=== PATIENT | male | born 1960 | race Two or more races ===

== ENCOUNTER 2018-02-01 10:34 | Inpatient (IN) | payer SELFPAY ==
[~2018-02-01] VITALS: Ht 167.6 cm; Wt 72.6 kg
[2018-02-01] VITALS (8 sets, daily range): BP systolic 40–98; BP diastolic 24–53
--- NOTE | 2018-02-01 10:44 | Emergency Room Report ---
History of Present Illness General Chief Complaint: Altered Level of Consciousness Source: Patient, EMS Present Illness HPI 57-year-old male brought in by EMS for altered level of consciousness found in the street. Apparently blood sugar was 151 prior to arrival in the check, and vital signs were normal, patient was somnolent, but opened eyes and made an comfortable sounds to tactile stimulus. There are no signs of trauma seen, and patient is unable to give any history. Does have eyes open and withdraws appropriately from pain. Allergies: Coded Allergies: No Known Allergies (Unverified , 02/01/18) Patient History Limited by: medical condition Past Medical History: see triage record, unable to obtain Reviewed Nursing Documentation: PMH: Agreed; PSxH: Agreed Nursing Documentation-PMH Past Medical History: No Stated History Review of Systems All Other Systems: limited Physical Exam Vital Signs Date Time Temp Pulse Resp B/P (MAP) Pulse Ox O2 Delivery O2 Flow Rate FiO2 02/01/18 10:14 75 18 126/61 98 Room Air Sp02 EP Interpretation: reviewed, abnormal General Appearance: alert - drowsy, severe distress Head: normocephalic Eyes: bilateral eye normal inspection, bilateral eye PERRL, bilateral eye EOMI , bilateral eye Scleral Injection ENT: normal ENT inspection, dry mucus membranes Neck: normal inspection, full range of motion, supple, no bony tend, supple/ symm/no masses Respiratory: chest non-tender, lungs clear, chest symmetrical, palpation of chest normal Cardiovascular #1: normal peripheral pulses, regular rate, rhythm, edema - 2+ B /L LE edema Cardiovascular #2: 2+ carotid (R), 2+ carotid (L); 1+ radial (R), 1+ radial (L) ; 2+ femoral (R), 2+ femoral (L) Gastrointestinal: normal inspection, non tender, soft, no mass, no guarding, no rebound Rectal: deferred Genitourinary: normal inspection, no CVA tenderness Musculoskeletal: back normal, gait/station normal, normal range of motion, non- tender, no calf tenderness Neurologic: responsive - to painful stimulus with groans and withdraws extremities appropriately, sensory intact Psychiatric: other - unable to assess Skin: normal color, no rash, normal turgor, pallor Lymphatic: no adenopathy Other Organ Systems cold Procedures Critical Care Time Critical Care Time 50 minutes of critical care time due to patient's severe morbidity and mortality risk given cold temperature, unable to obtain rectal temperature due to patient's hypothermia, unable to obtain much history as well to his change in mental status, this critical care time was exclusive of all procedures. Central Line Central Line : Consent: Emergent Central Line Lumen: triple Maximal Sterile Barrier Tech: yes cap, yes mask, yes sterile gown, yes sterile gloves, yes large sterile sheet, yes hand hygiene, yes chlorhexidine prep Central Line Postion: femoral (R) Anesthesia: other - none Complications: none Central Line Post Position: sutured, good blood return Attempts: One Patient Tolerated: Well Complications: None CPR/Code Blue CPR/Code Blue Narrative see code sheet Intubation Intubation : Consent: Emergent Time of Intubation: 11:59 Tube Size (cm): 7.0 Medications: Succinylcholine Breath Sounds after Intubation: equal Intubation Complications: no complications Post Intubation Xray: Yes Progress/Xray Impression: ett above glen Attempts: Other - 2, difficult tube delivery with 7.5 ett, so 7.0 used with BVM in between attempts, glidescope used Patient Tolerated: Well Complications: None Medical Decision Making Diagnostic Impression: Primary Impression: Accidental hypothermia ER Course Patient found to be very hypothermic, temperature unable to assess, EKG with Villa waves, patient hypotensive, had 2 large-bore IVs placed, 1L NSS infusing , then 2 more L warmed NSS coming from OR to infuse upon arrival, warm blankets as well as mechanical body warmer placed, defibrillation pads made ready, instructions to avoid over jostling the patient, patient will need ICU admission. Staff instructed to avoid chest compressions if organized rhythm seen on monitor and to keep US machine and doppler at bedside for pulse assessments since decreased palpability of pulse is expected during hypothermia treatment, and of course to inform me if this possibly occurs so I can direct CPR if necessary. Patient did eventually code, went into asystole, needed CPR, had ROSC with epi, bicarb, and chest compression, was intubated, had a central line placed, put on pressors and iv abx, bicarb drip. Patient admitted to ICU to Dr. Pollock. Lab Results Impression abg with metabolic acidosis and incomplete respiratory compensation EKG Diagnostic Results EKG Time: 10:38 EP Interpretation: villa waves in inferolateral leads Rate: other - junctional escape ST Segments: no acute changes - +st elevations inferolaterally 2/2 villa waves Rhythm Strip Diag. Results Rhythm Strip Time: 10:43 EP Interpretation: yes Rate: 60 Rhythm: other - junctional escape rhythm Chest X-Ray Diagnostic Results Chest X-Ray Diagnostic Results : Chest X-Ray Ordered: Yes # of Views/Limited/Complete: 1 View Indication: Shortness of Breath EP Interpretation: Yes Interpretation: no effusion, no pneumothorax, other - +pulm vasc congestion Impression: Other Electronically Signed by: pulm vasc congestion, ETT in place Last Vital Signs Date Time Temp Pulse Resp B/P (MAP) Pulse Ox O2 Delivery O2 Flow Rate FiO2 02/01/18 10:14 75 18 126/61 98 Room Air Disposition: ADMITTED INPATIENT Condition: Critical JONATAN ZALDIVAR M.D Feb 01, 2018 10:44
[2018-02-01 11:22] LABS: HEMOGLOBIN 9.3 G/DL (14.2-18.0); MEAN CORPUSCULAR VOLUME 99 FL (80-99); PLATELET COUNT 31 K/UL (150-450); RED BLOOD COUNT 3.14 M/UL (4.70-6.10); RED CELL DISTRIBUTION WIDTH 21.1 % (11.6-14.8); WHITE BLOOD COUNT 4.2 K/UL (4.8-10.8)
[2018-02-01 11:28] LABS: ANION GAP 23 mmol/L (5-15); BLOOD UREA NITROGEN 15 mg/dL (7-18); CALCIUM 8.5 MG/DL (8.5-10.1); CARBON DIOXIDE 11 MMOL/L (21-32); CHLORIDE 99 MMOL/L (98-107); CREATININE 1.7 MG/DL (0.55-1.30); POTASSIUM 3.7 MMOL/L (3.5-5.1); SODIUM 133 MMOL/L (136-145)
[2018-02-01 11:32] LABS: ALANINE AMINOTRANSFERASE 108 U/L (12-78); ALBUMIN 2.3 G/DL (3.4-5.0); ALKALINE PHOSPHATASE 270 U/L (46-116); ASPARTATE AMINO TRANSFERASE 585 U/L (15-37); BILIRUBIN,DIRECT 2.4 MG/DL (0.0-0.3); BILIRUBIN,TOTAL 3.5 MG/DL (0.2-1.0)
--- NOTE | 2018-02-01 11:41 | Diagnostic Imaging Report ---
Indications: Altered level of consciousness Technique: Spiral acquisitions obtained through the brain. Angled axial and coronal 5 x 5 mm slices were reconstructed. Total dose length product 1446.46 mGycm. CTDI vol(s) 70.38 mGy. Dose reduction achieved using automated exposure control Comparison: None. Findings: There is image degradation due to motion artifact. There is a small subcutaneous scalp lesion in the high left parietal region. No acute intracranial hemorrhage nor edema. No mass effect nor midline shift. There is prominence to the ventricles and extra axial CSF spaces. There is minimal periventricular deep white matter low-attenuation, consistent with chronic ischemic change. The calvarium is intact. There is minimal ethmoid sinus disease. The mastoids are grossly clear Impression: Limited exam due to motion artifact Chronic and age-related changes, as described Negative for acute intracranial bleed or mass effect Incidental finding small subcutaneous scalp lesion in the high left parietal region, likely a process such as a subcutaneous cyst. Correlate with clinical findings The CT scanner at [facility] is accredited by the [employer] and the scans are performed using protocols designed to limit radiation exposure to as low as reasonably achievable to attain images of sufficient resolution adequate for diagnostic evaluation.
[2018-02-01] MEDS ORDERED: Piperacillin/Tazobactam 3.375 GM in NS 110 ML IVPB ONE (11:45)
--- NOTE | 2018-02-01 12:14 | Diagnostic Imaging Report ---
Indication: Shortness of breath Technique: One view of the chest Comparison: none Findings: External defibrillator paddles overlie the heart. Lungs and pleural spaces are clear. The heart size is normal Impression: No acute process
[2018-02-01] MEDS ORDERED: DOPamine 400mg/250ml 250 ML IV SCH ×3 (12:45→16:00)
[2018-02-01] MEDS ORDERED: SODIUM BICARBONATE IV ONE (13:00)
[2018-02-01] MEDS ORDERED: D5W IV ONE (13:00)
[2018-02-01 14:53] LABS: HEMOGLOBIN 7.4 G/DL (14.2-18.0); MEAN CORPUSCULAR VOLUME 99 FL (80-99); PLATELET COUNT 20 K/UL (150-450); RED BLOOD COUNT 2.43 M/UL (4.70-6.10); RED CELL DISTRIBUTION WIDTH 21.2 % (11.6-14.8); WHITE BLOOD COUNT 4.2 K/UL (4.8-10.8)
[2018-02-01 15:16] LABS: ANION GAP 21 mmol/L (5-15); BLOOD UREA NITROGEN 14 mg/dL (7-18); CARBON DIOXIDE 16 MMOL/L (21-32); CHLORIDE 104 MMOL/L (98-107); CREATININE 1.6 MG/DL (0.55-1.30); POTASSIUM 3.7 MMOL/L (3.5-5.1); SODIUM 140 MMOL/L (136-145)
--- NOTE | 2018-02-01 15:21 | GI Initial Consult Note ---
History of Present Illness General Date patient seen: Feb 01, 2018 Time patient seen: 15:10 Reason for Hospitalization: Altered Level of Consciousness Referring physician: MARTINA SYKES Reason for Consultation: GI BLEED Present Illness HPI 57-year-old male brought in by EMS for altered level of consciousness found in the street. Apparently blood sugar was 151 prior to arrival in the check, and vital signs were normal, patient was somnolent, but opened eyes and made an comfortable sounds to tactile stimulus. There are no signs of trauma seen, and patient is unable to give any history. Does have eyes open and withdraws appropriately from pain. GI consulted for GI bleed. ROS limited, AMS lethargic unable to provide any history. All history has been obtained from the EMR. Pt seen in ICU, mild distress, NGT present, noted with active UGIB. Labs reviewed; the patient presents with critical serum alcohol levels, pancytopenia, elevated LFTs, elevated lipase levels, elevated lactic acid levels. Unknown history of endoscopy/colonoscopy. Med list reviewed/reconciled: Yes Allergies: Coded Allergies: No Known Allergies (Unverified , 02/01/18) Patient History Limited by: medical condition History Provided By: Medical Record PMH Narrative Limited by: medical condition Past Medical History: see triage record, unable to obtain Reviewed Nursing Documentation: PMH: Agreed; PSxH: Agreed Nursing Documentation-PMH Past Medical History: No Stated History Social History: Reports: alcohol use - ETOH abuse Review of Systems All Other Systems: limited Physical Exam Vital Signs Date Time Temp Pulse Resp B/P (MAP) Pulse Ox O2 Delivery O2 Flow Rate FiO2 02/01/18 10:14 75 18 126/61 98 Room Air 02/01/18 11:16 80.0 3.0 02/01/18 12:15 100 Sp02 EP Interpretation: reviewed Labs Laboratory Tests Test 02/01/18 10:34 02/01/18 10:35 02/01/18 10:37 02/01/18 10:52 Fibrinogen 50 mg/dL (200-400) *L Sodium Level 133 MMOL/L (136-145) L Potassium Level 3.7 MMOL/L (3.5-5.1) Chloride Level 99 MMOL/L (98-107) Carbon Dioxide Level 11 MMOL/L (21-32) L Anion Gap 23 mmol/L (5-15) H Blood Urea Nitrogen 15 mg/dL (7-18) Creatinine 1.7 MG/DL (0.55-1.30) H Estimat Glomerular Filtration Rate 42.1 mL/min (>60) Glucose Level 112 MG/DL (74-106) H Lactic Acid Level 12.20 mmol/L (0.4-2.0) H Calcium Level 8.5 MG/DL (8.5-10.1) Total Bilirubin 3.5 MG/DL (0.2-1.0) H Direct Bilirubin 2.4 MG/DL (0.0-0.3) H Aspartate Amino Transf (AST/SGOT) 585 U/L (15-37) H Alanine Aminotransferase (ALT/SGPT) 108 U/L (12-78) H Alkaline Phosphatase 270 U/L (46-116) H Total Protein 6.9 G/DL (6.4-8.2) Albumin 2.3 G/DL (3.4-5.0) L Lipase > 2000 U/L (73-393) H Salicylates Level < 0.2 ug/mL (2.8-20) L Acetaminophen Level < 2 MCG/ML (10-30) L Serum Alcohol 325 mg/dL Arterial Blood pH 7.119 (7.350-7.450) Arterial Blood Partial Pressure CO2 30.8 mmHg (35.0-45.0) L Arterial Blood Partial Pressure O2 298.6 mmHg (75.0-100.0) H Arterial Blood HCO3 9.8 mmol/L (22.0-26.0) *L Arterial Blood Oxygen Saturation 99.1 % (95-100) Arterial Blood Base Excess -18.3 (-2-2) *L Cayden Test Positive White Blood Count 4.2 K/UL (4.8-10.8) L Red Blood Count 3.14 M/UL (4.70-6.10) L Hemoglobin 9.3 G/DL (14.2-18.0) L Hematocrit 31.0 % (42.0-52.0) L Mean Corpuscular Volume 99 FL (80-99) Mean Corpuscular Hemoglobin 29.7 PG (27.0-31.0) Mean Corpuscular Hemoglobin Concent 30.1 G/DL (32.0-36.0) L Red Cell Distribution Width 21.1 % (11.6-14.8) H Platelet Count 31 K/UL (150-450) L Mean Platelet Volume 6.9 FL (6.5-10.1) Neutrophils (%) (Auto) % (45.0-75.0) Lymphocytes (%) (Auto) % (20.0-45.0) Monocytes (%) (Auto) % (1.0-10.0) Eosinophils (%) (Auto) % (0.0-3.0) Basophils (%) (Auto) % (0.0-2.0) Differential Total Cells Counted 100 Neutrophils % (Manual) 76 % (45-75) H Lymphocytes % (Manual) 13 % (20-45) L Monocytes % (Manual) 11 % (1-10) H Eosinophils % (Manual) 0 % (0-3) Basophils % (Manual) 0 % (0-2) Band Neutrophils 0 % (0-8) Platelet Estimate Decreased L Platelet Morphology Normal Hypochromasia 2+ Anisocytosis 3+ Urine Opiates Screen Negative (NEGATIVE) Urine Barbiturates Screen Negative (NEGATIVE) Phencyclidine (PCP) Screen Negative (NEGATIVE) Urine Amphetamines Screen Negative (NEGATIVE) Urine Benzodiazepines Screen Negative (NEGATIVE) Urine Cocaine Screen Negative (NEGATIVE) Urine Marijuana (THC) Screen Negative (NEGATIVE) Test 02/01/18 12:16 02/01/18 13:25 02/01/18 14:28 02/01/18 14:30 Lactic Acid Level 12.70 mmol/L (0.66-2.22) H Pending Arterial Blood pH 7.043 (7.350-7.450) Pending Arterial Blood Partial Pressure CO2 54.2 mmHg (35.0-45.0) H Pending Arterial Blood Partial Pressure O2 77.6 mmHg (75.0-100.0) Pending Arterial Blood HCO3 14.4 mmol/L (22.0-26.0) *L Pending Arterial Blood Oxygen Saturation 83.2 % (95-100) *L Pending Arterial Blood Base Excess -15.3 (-2-2) *L Pending Cayden Test Positive Pending White Blood Count 4.2 K/UL (4.8-10.8) L Red Blood Count 2.43 M/UL (4.70-6.10) L Hemoglobin 7.4 G/DL (14.2-18.0) L Hematocrit 24.0 % (42.0-52.0) L Mean Corpuscular Volume 99 FL (80-99) Mean Corpuscular Hemoglobin 30.6 PG (27.0-31.0) Mean Corpuscular Hemoglobin Concent 31.0 G/DL (32.0-36.0) L Red Cell Distribution Width 21.2 % (11.6-14.8) H Platelet Count 20 K/UL (150-450) L Mean Platelet Volume 15.5 FL (6.5-10.1) H Neutrophils (%) (Auto) % (45.0-75.0) Lymphocytes (%) (Auto) % (20.0-45.0) Monocytes (%) (Auto) % (1.0-10.0) Eosinophils (%) (Auto) % (0.0-3.0) Basophils (%) (Auto) % (0.0-2.0) Neutrophils % (Manual) Pending Lymphocytes % (Manual) Pending Platelet Estimate Pending Platelet Morphology Pending Sodium Level Pending Potassium Level Pending Chloride Level Pending Carbon Dioxide Level Pending Blood Urea Nitrogen Pending Creatinine Pending Estimat Glomerular Filtration Rate Pending Glucose Level Pending Calcium Level Pending Total Bilirubin Pending Aspartate Amino Transf (AST/SGOT) Pending Alanine Aminotransferase (ALT/SGPT) Pending Alkaline Phosphatase Pending Total Protein Pending Albumin Pending Globulin Pending General Appearance: mild distress, lethargic Neck: supple Respiratory: no rhonchi Gastrointestinal: ngt Rectal: deferred Genitourinary: no CVA tenderness Lymphatic: normal inspection Current Medications Current Medications Medications (Trade) Dose Ordered Sig/Faustino Route PRN Reason Start Time Stop Time Status Last Admin Dose Admin Dopamine HCl/ Dextrose 250 ml @ 13.608 mls/ hr Q24H IV 02/01/18 13:00 03/03/18 12:59 02/01/18 12:55 Norepinephrine Bitartrate 8 mg/ Dextrose 250 ml @ 0 mls/hr Q24H IV 02/01/18 13:00 03/03/18 12:59 02/01/18 13:24 Octreotide Acetate 500 mcg/ Sodium Chloride 500 ml @ 50 mls/hr Q10H IV 02/01/18 15:30 03/03/18 15:29 Pantoprazole 80 mg/Sodium Chloride 250 ml @ 25 mls/hr Q10H ONCE IV 02/01/18 15:30 02/02/18 01:29 GI: Plan Problems: (1) Pancytopenia (2) Alcoholic pancreatitis (3) Esophageal varices in alcoholic cirrhosis (4) UGIB (upper gastrointestinal bleed) (5) Hepatic encephalopathy (6) Alcoholic hepatitis Plan EGD scheduled for tomorrow. >> will need emergent endoscopy if unable to contact family for consent - hold all blood thinners. strict NPO + IVFs >> do not use NGT, keep NGT to gravity. pRBC, platelets, FFP transfusion pending octreotide gtt ppi gtt stat INR >> fu discriminate function repeat CBC tonight abdominal US when stable will follow with additional recs post procedure Discussed with Dr. Jaimes. Thank you for this patient referral, we will follow. The patient was seen and examined at bedside and all new and available data was reviewed in the patients chart. I agree with the above findings, impression and plan. (Patient seen earlier today. Signature stamp does not reflect patient encounter time.). - MD Nimisha RestrepoWhite Mountain Regional Medical CenterRigo DERRICK HAND Feb 01, 2018 15:21
--- NOTE | 2018-02-01 15:22 | Diagnostic Imaging Report ---
Indication: Post intubation Technique: One view of the chest Comparison: One hour earlier Findings: Interim endotracheal intubation, endotracheal tube tip in good position approximately 5 cm above the glen. There is what appears to be a nasogastric tube coiled in the hypopharynx. There is interim development of bilateral perihilar interstitial and airspace edema. The pleural spaces remain clear. The stomach is distended with gas. Overlying defibrillator paddles again demonstrated Impression: Satisfactory endotracheal intubation Malposition of nasogastric tube. New or worsening bilateral perihilar interstitial and airspace edema
[2018-02-01 15:27] LABS: ALANINE AMINOTRANSFERASE 95 U/L (12-78); ALBUMIN 1.6 G/DL (3.4-5.0); ALBUMIN/GLOBULIN RATIO 0.5 (1.0-2.7); ALKALINE PHOSPHATASE 216 U/L (46-116); ASPARTATE AMINO TRANSFERASE 544 U/L (15-37); BILIRUBIN,TOTAL 2.7 MG/DL (0.2-1.0)
[2018-02-01 15:28] LABS: BILIRUBIN,DIRECT 1.3 MG/DL (0.0-0.3)
[2018-02-01] MEDS ORDERED: Pantoprazole 80 MG in NS 250 ML IV ONE (15:30)
[2018-02-01] MEDS ORDERED: Octreotide Acetate 500 MCG in Sodium Chloride 500ML 499 ML IV SCH ×3 (15:30→17:45)
[2018-02-01] MEDS ORDERED: Sodium Chloride 500ML 500 ML IV PRN (15:45)
[2018-02-01] MEDS ORDERED: LORazepam Inj 2mg/ml 1ml IV PRN ×2 (16:00→16:13)
[2018-02-01] MEDS ORDERED: Acetaminophen 650 MG SUPP RECTAL PRN (16:00)
[2018-02-01] MEDS ORDERED: Pantoprazole 80 MG in NS 250 ML IV SCH ×2 (16:00→17:45)
--- NOTE | 2018-02-01 16:18 | Diagnostic Imaging Report ---
Indication: Tube placement Technique: One view of the chest Comparison: 3 hours earlier Findings: Endotracheal tube is in place, in good position approximately 5 cm above the glen. Bilateral perihilar pulmonary interstitial and airspace edema versus infiltrates appears slightly worse than on the prior exam. There is suggestion of developing pleural fluid on the right, mostly superior and lateral. There is also blunting of left costophrenic sulcus, not evident previously, likewise. Likely reflects developing pleural fluid The heart size is normal. Nasogastric tube, coiled in the hypopharynx on the prior exam, is no longer evident for patient's nurse is been removed. The stomach remains distended with air Impression: Satisfactory position of endotracheal tube Interim nasogastric tube removal Worsening bilateral pulmonary perihilar infiltrates versus edema Suspect developing bilateral pleural effusions Findings discussed by phone with patient's nurse Anatoliy at the time of interpretation
[2018-02-01] MEDS ORDERED: DOPAmine 400mg/250ml Premix IV SCH (16:21)
[2018-02-01] MEDS ORDERED: Thiamine 100mg in D5W 55ml IVPB SCH (17:00)
[2018-02-01] MEDS ORDERED: Sodium Bicarbonate 50ml Carp ONE (17:13)
[2018-02-01] MEDS ORDERED: Atropine Inj 1mg/10ml Syr ONE (17:13)
--- NOTE | 2018-02-01 17:33 | Consultation ---
Consult Note Assessment/Plan DICT # [id number] Fer Daigle MD Feb 01, 2018 17:33
[2018-02-01] MEDS ORDERED: Folic Acid 1 MG, Magnesium Sulfate 2,000 MG, Multivitamin - 12 Injection 10 ML in NS 10... IV SCH (18:00)
[2018-02-01] MEDS ORDERED: Vancomycin 1250mg/D5W 250ml IVPB SCH (18:00)
[2018-02-01] MEDS ORDERED: Sodium Bicarbonate 50 ML in NS 1000ml 1,000 ML IV SCH (18:00)
[2018-02-01] MEDS ORDERED: EPINEPHrine 1 MG in D5W 250ml IV SCH (18:00)
--- NOTE | 2018-02-01 18:14 | Infectious Diseases Prog Note ---
Assessment/Plan Problems: (1) Aspiration pneumonia Assessment & Plan: suspect due to UGI BLD, continue zosyn and vancomycin pending cultures, aspiration precaution (2) Hepatic encephalopathy Assessment & Plan: due to alcoholic liver disease, monitor ammonia (3) Alcoholic pancreatitis Assessment & Plan: continue supportive care with hydration and close monitor of lipase level (4) UGIB (upper gastrointestinal bleed) Assessment & Plan: suspect esophageal varices due to alcoholic liver cirrhosis , keep npo, monitor H/H, transfused as needed, GI is following Subjective Allergies: Coded Allergies: No Known Allergies (Unverified , 02/01/18) Objective Vital Signs Last 24 Hour Vital Signs Date Time Temp Pulse Resp B/P (MAP) Pulse Ox O2 Delivery O2 Flow Rate FiO2 02/01/18 15:49 53/31 02/01/18 14:50 84.0 84 20 85/41 96 Mechanical Ventilator 3.0 100 02/01/18 14:40 85/41 02/01/18 14:39 85/41 02/01/18 14:35 84.0 84 20 83/24 96 Mechanical Ventilator 3.0 100 02/01/18 14:25 83/24 02/01/18 14:24 83/24 02/01/18 14:10 84.0 82 16 75/40 96 Mechanical Ventilator 3.0 100 02/01/18 14:10 75/40 02/01/18 14:09 75/40 02/01/18 13:55 68/26 02/01/18 13:54 68/26 02/01/18 13:40 67/37 02/01/18 13:39 67/37 02/01/18 13:25 53/28 02/01/18 13:24 53/28 02/01/18 13:22 68 16 67/53 98 Mechanical Ventilator 02/01/18 13:10 41/15 02/01/18 12:55 63/45 02/01/18 12:20 54 14 100 02/01/18 12:15 100 02/01/18 12:10 61/36 98 Mechanical Ventilator 02/01/18 11:55 0 80/40 96 Endotracheal Tube 02/01/18 11:40 58 98/52 02/01/18 11:16 80.0 60 14 40/29 94 Nasal Cannula 3.0 02/01/18 10:35 57 18 Room Air 02/01/18 10:14 75 18 126/61 98 Room Air Height (Feet): 5 Height (Inches): 6.00 Weight (Pounds): 160 Laboratory Tests Test 02/01/18 10:34 02/01/18 10:35 02/01/18 10:37 02/01/18 10:52 Fibrinogen 50 mg/dL (200-400) *L Sodium Level 133 MMOL/L (136-145) L Potassium Level 3.7 MMOL/L (3.5-5.1) Chloride Level 99 MMOL/L (98-107) Carbon Dioxide Level 11 MMOL/L (21-32) L Anion Gap 23 mmol/L (5-15) H Blood Urea Nitrogen 15 mg/dL (7-18) Creatinine 1.7 MG/DL (0.55-1.30) H Estimat Glomerular Filtration Rate 42.1 mL/min (>60) Glucose Level 112 MG/DL (74-106) H Lactic Acid Level 12.20 mmol/L (0.4-2.0) H Calcium Level 8.5 MG/DL (8.5-10.1) Total Bilirubin 3.5 MG/DL (0.2-1.0) H Direct Bilirubin 2.4 MG/DL (0.0-0.3) H Aspartate Amino Transf (AST/SGOT) 585 U/L (15-37) H Alanine Aminotransferase (ALT/SGPT) 108 U/L (12-78) H Alkaline Phosphatase 270 U/L (46-116) H Total Protein 6.9 G/DL (6.4-8.2) Albumin 2.3 G/DL (3.4-5.0) L Lipase > 2000 U/L (73-393) H Salicylates Level < 0.2 ug/mL (2.8-20) L Acetaminophen Level < 2 MCG/ML (10-30) L Serum Alcohol 325 mg/dL Arterial Blood pH 7.119 (7.350-7.450) Arterial Blood Partial Pressure CO2 30.8 mmHg (35.0-45.0) L Arterial Blood Partial Pressure O2 298.6 mmHg (75.0-100.0) H Arterial Blood HCO3 9.8 mmol/L (22.0-26.0) *L Arterial Blood Oxygen Saturation 99.1 % (95-100) Arterial Blood Base Excess -18.3 (-2-2) *L Cayden Test Positive White Blood Count 4.2 K/UL (4.8-10.8) L Red Blood Count 3.14 M/UL (4.70-6.10) L Hemoglobin 9.3 G/DL (14.2-18.0) L Hematocrit 31.0 % (42.0-52.0) L Mean Corpuscular Volume 99 FL (80-99) Mean Corpuscular Hemoglobin 29.7 PG (27.0-31.0) Mean Corpuscular Hemoglobin Concent 30.1 G/DL (32.0-36.0) L Red Cell Distribution Width 21.1 % (11.6-14.8) H Platelet Count 31 K/UL (150-450) L Mean Platelet Volume 6.9 FL (6.5-10.1) Neutrophils (%) (Auto) % (45.0-75.0) Lymphocytes (%) (Auto) % (20.0-45.0) Monocytes (%) (Auto) % (1.0-10.0) Eosinophils (%) (Auto) % (0.0-3.0) Basophils (%) (Auto) % (0.0-2.0) Differential Total Cells Counted 100 Neutrophils % (Manual) 76 % (45-75) H Lymphocytes % (Manual) 13 % (20-45) L Monocytes % (Manual) 11 % (1-10) H Eosinophils % (Manual) 0 % (0-3) Basophils % (Manual) 0 % (0-2) Band Neutrophils 0 % (0-8) Platelet Estimate Decreased L Platelet Morphology Normal Hypochromasia 2+ Anisocytosis 3+ Urine Opiates Screen Negative (NEGATIVE) Urine Barbiturates Screen Negative (NEGATIVE) Phencyclidine (PCP) Screen Negative (NEGATIVE) Urine Amphetamines Screen Negative (NEGATIVE) Urine Benzodiazepines Screen Negative (NEGATIVE) Urine Cocaine Screen Negative (NEGATIVE) Urine Marijuana (THC) Screen Negative (NEGATIVE) Test 02/01/18 12:16 02/01/18 13:25 02/01/18 14:28 02/01/18 14:30 Lactic Acid Level 12.70 mmol/L (0.66-2.22) H 13.80 mmol/L (0.4-2.0) H Arterial Blood pH 7.043 (7.350-7.450) 6.976 (7.350-7.450) Arterial Blood Partial Pressure CO2 54.2 mmHg (35.0-45.0) H 56.9 mmHg (35.0-45.0) *H Arterial Blood Partial Pressure O2 77.6 mmHg (75.0-100.0) 55.5 mmHg (75.0-100.0) L Arterial Blood HCO3 14.4 mmol/L (22.0-26.0) *L 13.0 mmol/L (22.0-26.0) *L Arterial Blood Oxygen Saturation 83.2 % (95-100) *L 60.3 % (95-100) *L Arterial Blood Base Excess -15.3 (-2-2) *L -17.8 (-2-2) *L Cayden Test Positive Positive White Blood Count 4.2 K/UL (4.8-10.8) L Red Blood Count 2.43 M/UL (4.70-6.10) L Hemoglobin 7.4 G/DL (14.2-18.0) L Hematocrit 24.0 % (42.0-52.0) L Mean Corpuscular Volume 99 FL (80-99) Mean Corpuscular Hemoglobin 30.6 PG (27.0-31.0) Mean Corpuscular Hemoglobin Concent 31.0 G/DL (32.0-36.0) L Red Cell Distribution Width 21.2 % (11.6-14.8) H Platelet Count 20 K/UL (150-450) L Mean Platelet Volume 15.5 FL (6.5-10.1) H Neutrophils (%) (Auto) % (45.0-75.0) Lymphocytes (%) (Auto) % (20.0-45.0) Monocytes (%) (Auto) % (1.0-10.0) Eosinophils (%) (Auto) % (0.0-3.0) Basophils (%) (Auto) % (0.0-2.0) Differential Total Cells Counted 100 Neutrophils % (Manual) 79 % (45-75) H Lymphocytes % (Manual) 16 % (20-45) L Monocytes % (Manual) 4 % (1-10) Eosinophils % (Manual) 0 % (0-3) Basophils % (Manual) 1 % (0-2) Band Neutrophils 0 % (0-8) Platelet Estimate Decreased L Platelet Morphology Normal Hypochromasia 3+ Anisocytosis 3+ Target Cells 1+ Sodium Level 140 MMOL/L (136-145) Potassium Level 3.7 MMOL/L (3.5-5.1) Chloride Level 104 MMOL/L (98-107) Carbon Dioxide Level 16 MMOL/L (21-32) L Anion Gap 21 mmol/L (5-15) H Blood Urea Nitrogen 14 mg/dL (7-18) Creatinine 1.6 MG/DL (0.55-1.30) H Estimat Glomerular Filtration Rate 45.1 mL/min (>60) Glucose Level 134 MG/DL (74-106) H Calcium Level 7.0 MG/DL (8.5-10.1) L Total Bilirubin 2.7 MG/DL (0.2-1.0) H Direct Bilirubin 1.3 MG/DL (0.0-0.3) H Aspartate Amino Transf (AST/SGOT) 544 U/L (15-37) H Alanine Aminotransferase (ALT/SGPT) 95 U/L (12-78) H Alkaline Phosphatase 216 U/L (46-116) H Total Protein 5.1 G/DL (6.4-8.2) L Albumin 1.6 G/DL (3.4-5.0) L Globulin 3.5 g/dL Albumin/Globulin Ratio 0.5 (1.0-2.7) L Current Medications Medications (Trade) Dose Ordered Sig/Faustino Route PRN Reason Start Time Stop Time Status Last Admin Dose Admin Acetaminophen (Tylenol) 650 mg Q3H PRN RECTAL For Pain 02/01/18 16:00 03/03/18 15:59 Dopamine HCl/ Dextrose 250 ml @ 0 mls/hr Q24H IV 02/01/18 16:21 03/03/18 16:20 Epinephrine 1 mg/ Dextrose 250 ml @ 0 mls/hr Q24H IV 02/01/18 18:00 03/03/18 17:59 Folic Acid 1 mg/ Magnesium Sulfate 2000 mg/ Multivitamins 10 ml/Sodium Chloride 1,014.2 ml @ 125 mls/ hr Q24H IV 02/01/18 18:00 03/03/18 17:59 Lorazepam (Ativan 2mg/ml 1ml) 1 mg Q6H PRN IV For Anxiety 02/01/18 16:00 02/08/18 15:59 Lorazepam (Ativan 2mg/ml 1ml) 2 mg Q5M PRN IV Seizures 02/01/18 16:13 03/03/18 23:59 Norepinephrine Bitartrate 16 mg/ Dextrose 566 ml @ 0 mls/hr Q24H IV 02/02/18 17:00 03/03/18 16:59 Octreotide Acetate 500 mcg/ Sodium Chloride 500 ml @ 50 mls/hr Q10H IV 02/01/18 15:30 03/03/18 15:29 Pantoprazole 80 mg/Sodium Chloride 250 ml @ 25 mls/hr Q10H ONCE IV 02/01/18 15:30 02/02/18 01:29 Piperacillin Sod/ Tazobactam Sod 3.375 gm/Dextrose 110 ml @ 27.5 mls/hr EVERY 8 HOURS IVPB 02/01/18 22:00 02/06/18 21:59 Sodium Bicarbonate 50 ml/ Sodium Chloride 1,050 ml @ 50 mls/hr Q21H IV 02/01/18 18:00 03/03/18 17:59 Sodium Chloride 500 ml @ 999 mls/hr Q31M PRN IV SBP greater than 60 02/01/18 15:45 03/03/18 15:44 Thiamine HCl 100 mg/Dextrose 56 ml @ 112 mls/hr Q24H IVPB 02/01/18 17:00 03/03/18 16:59 Vancomycin HCl (Vanco rx to dose) 1 ea DAILY PRN MISC Per rx protocol 02/01/18 17:45 03/03/18 17:44 Vancomycin HCl/ Dextrose 250 ml @ 166.667 mls/hr ONCE IVPB 02/01/18 18:00 02/01/18 20:00 Anthony Alejandre M.D. Feb 01, 2018 18:14
--- NOTE | 2018-02-01 18:26 | Consultation ---
History of Present Illness General Time patient seen: 01:30 Chief Complaint: Altered Level of Consciousness Referring physician: MARTINA SYKES Reason for Consultation: GI BLEED Present Illness HPI A 57-year-old male with PMH of alcohol abuse was brought in by EMS for altered level of consciousness after he was found in the street. Apparently blood sugar was 151 prior to arrival in the check, and vital signs were normal, patient was somnolent, but opened eyes and made an comfortable sounds to tactile stimulus. There are no signs of trauma seen, in ED he had PEA and recieved CPR , was intubated and started on two pressors , repeated CXR showed worsening infiltration on both sides concerning for aspiration pneumonia , so he was started on vancomycin and zosyn and an infectious disease consult was requested for antibiotics treatment Allergies: Coded Allergies: No Known Allergies (Unverified , 02/01/18) Patient History Limited by: medical condition, other - intoxicated with alcohol , and intubated History Provided By: Medical Record, EMS Healthcare decision maker Resuscitation status Advanced Directive on File Past Medical/Surgical History Past Medical/Surgical History: (1) ETOH abuse Review of Systems Constitutional: Reports: weakness Respiratory: Reports: cough, shortness of breath, wheezing Gastrointestinal: Reports: vomiting, hematemesis Neurological: Reports: syncope Physical Exam General Appearance: no apparent distress, lethargic, confused, obese, other - intubated on mechanical ventilation with fresh blood in his NGT and ET tube Lines, tubes and drains: central line, ngt HEENT: normocephalic, atraumatic, anicteric, mucous membranes moist Neck: non-tender, normal alignment, supple, normal inspection Respiratory/Chest: no respiratory distress, no accessory muscle use, decreased breath sounds, crackles/rales, expiratory wheezing Cardiovascular/Chest: normal peripheral pulses, regular rhythm, no gallop/ murmur, no JVD, tachycardia Abdomen: normal bowel sounds, non tender, soft, no organomegaly, no mass, abnormal bowel sounds, hyperactive bowel sounds, distended Genitourinary/Rectal: normal genital exam Extremities: normal inspection, non-pitting Skin Exam: normal pigmentation, warm/dry, palled Neurologic: unresponsiveness Lymphatic: anterior cervical Musculoskeletal: normal muscle bulk, no effusion Last 24 Hour Vital Signs Date Time Temp Pulse Resp B/P (MAP) Pulse Ox O2 Delivery O2 Flow Rate FiO2 12/5/18 15:49 53/31 02/01/18 14:50 84.0 84 20 85/41 96 Mechanical Ventilator 3.0 100 02/01/18 14:40 85/41 02/01/18 14:39 85/41 02/01/18 14:35 84.0 84 20 83/24 96 Mechanical Ventilator 3.0 100 02/01/18 14:25 83/24 02/01/18 14:24 83/24 02/01/18 14:10 84.0 82 16 75/40 96 Mechanical Ventilator 3.0 100 02/01/18 14:10 75/40 02/01/18 14:09 75/40 02/01/18 13:55 68/26 02/01/18 13:54 68/26 02/01/18 13:40 67/37 02/01/18 13:39 67/37 02/01/18 13:25 53/28 02/01/18 13:24 53/28 02/01/18 13:22 68 16 67/53 98 Mechanical Ventilator 02/01/18 13:10 41/15 02/01/18 12:55 63/45 02/01/18 12:20 54 14 100 02/01/18 12:15 100 02/01/18 12:10 61/36 98 Mechanical Ventilator 02/01/18 11:55 0 80/40 96 Endotracheal Tube 02/01/18 11:40 58 98/52 02/01/18 11:16 80.0 60 14 40/29 94 Nasal Cannula 3.0 02/01/18 10:35 57 18 Room Air 02/01/18 10:14 75 18 126/61 98 Room Air Laboratory Tests Test 02/01/18 10:34 02/01/18 10:35 02/01/18 10:37 02/01/18 10:52 Fibrinogen 50 mg/dL (200-400) *L Sodium Level 133 MMOL/L (136-145) L Potassium Level 3.7 MMOL/L (3.5-5.1) Chloride Level 99 MMOL/L (98-107) Carbon Dioxide Level 11 MMOL/L (21-32) L Anion Gap 23 mmol/L (5-15) H Blood Urea Nitrogen 15 mg/dL (7-18) Creatinine 1.7 MG/DL (0.55-1.30) H Estimat Glomerular Filtration Rate 42.1 mL/min (>60) Glucose Level 112 MG/DL (74-106) H Lactic Acid Level 12.20 mmol/L (0.4-2.0) H Calcium Level 8.5 MG/DL (8.5-10.1) Total Bilirubin 3.5 MG/DL (0.2-1.0) H Direct Bilirubin 2.4 MG/DL (0.0-0.3) H Aspartate Amino Transf (AST/SGOT) 585 U/L (15-37) H Alanine Aminotransferase (ALT/SGPT) 108 U/L (12-78) H Alkaline Phosphatase 270 U/L (46-116) H Total Protein 6.9 G/DL (6.4-8.2) Albumin 2.3 G/DL (3.4-5.0) L Lipase > 2000 U/L (73-393) H Salicylates Level < 0.2 ug/mL (2.8-20) L Acetaminophen Level < 2 MCG/ML (10-30) L Serum Alcohol 325 mg/dL Arterial Blood pH 7.119 (7.350-7.450) Arterial Blood Partial Pressure CO2 30.8 mmHg (35.0-45.0) L Arterial Blood Partial Pressure O2 298.6 mmHg (75.0-100.0) H Arterial Blood HCO3 9.8 mmol/L (22.0-26.0) *L Arterial Blood Oxygen Saturation 99.1 % (95-100) Arterial Blood Base Excess -18.3 (-2-2) *L Cayden Test Positive White Blood Count 4.2 K/UL (4.8-10.8) L Red Blood Count 3.14 M/UL (4.70-6.10) L Hemoglobin 9.3 G/DL (14.2-18.0) L Hematocrit 31.0 % (42.0-52.0) L Mean Corpuscular Volume 99 FL (80-99) Mean Corpuscular Hemoglobin 29.7 PG (27.0-31.0) Mean Corpuscular Hemoglobin Concent 30.1 G/DL (32.0-36.0) L Red Cell Distribution Width 21.1 % (11.6-14.8) H Platelet Count 31 K/UL (150-450) L Mean Platelet Volume 6.9 FL (6.5-10.1) Neutrophils (%) (Auto) % (45.0-75.0) Lymphocytes (%) (Auto) % (20.0-45.0) Monocytes (%) (Auto) % (1.0-10.0) Eosinophils (%) (Auto) % (0.0-3.0) Basophils (%) (Auto) % (0.0-2.0) Differential Total Cells Counted 100 Neutrophils % (Manual) 76 % (45-75) H Lymphocytes % (Manual) 13 % (20-45) L Monocytes % (Manual) 11 % (1-10) H Eosinophils % (Manual) 0 % (0-3) Basophils % (Manual) 0 % (0-2) Band Neutrophils 0 % (0-8) Platelet Estimate Decreased L Platelet Morphology Normal Hypochromasia 2+ Anisocytosis 3+ Urine Opiates Screen Negative (NEGATIVE) Urine Barbiturates Screen Negative (NEGATIVE) Phencyclidine (PCP) Screen Negative (NEGATIVE) Urine Amphetamines Screen Negative (NEGATIVE) Urine Benzodiazepines Screen Negative (NEGATIVE) Urine Cocaine Screen Negative (NEGATIVE) Urine Marijuana (THC) Screen Negative (NEGATIVE) Test 02/01/18 12:16 02/01/18 13:25 02/01/18 14:28 02/01/18 14:30 Lactic Acid Level 12.70 mmol/L (0.66-2.22) H 13.80 mmol/L (0.4-2.0) H Arterial Blood pH 7.043 (7.350-7.450) 6.976 (7.350-7.450) Arterial Blood Partial Pressure CO2 54.2 mmHg (35.0-45.0) H 56.9 mmHg (35.0-45.0) *H Arterial Blood Partial Pressure O2 77.6 mmHg (75.0-100.0) 55.5 mmHg (75.0-100.0) L Arterial Blood HCO3 14.4 mmol/L (22.0-26.0) *L 13.0 mmol/L (22.0-26.0) *L Arterial Blood Oxygen Saturation 83.2 % (95-100) *L 60.3 % (95-100) *L Arterial Blood Base Excess -15.3 (-2-2) *L -17.8 (-2-2) *L [place] Test Positive Positive White Blood Count 4.2 K/UL (4.8-10.8) L Red Blood Count 2.43 M/UL (4.70-6.10) L Hemoglobin 7.4 G/DL (14.2-18.0) L Hematocrit 24.0 % (42.0-52.0) L Mean Corpuscular Volume 99 FL (80-99) Mean Corpuscular Hemoglobin 30.6 PG (27.0-31.0) Mean Corpuscular Hemoglobin Concent 31.0 G/DL (32.0-36.0) L Red Cell Distribution Width 21.2 % (11.6-14.8) H Platelet Count 20 K/UL (150-450) L Mean Platelet Volume 15.5 FL (6.5-10.1) H Neutrophils (%) (Auto) % (45.0-75.0) Lymphocytes (%) (Auto) % (20.0-45.0) Monocytes (%) (Auto) % (1.0-10.0) Eosinophils (%) (Auto) % (0.0-3.0) Basophils (%) (Auto) % (0.0-2.0) Differential Total Cells Counted 100 Neutrophils % (Manual) 79 % (45-75) H Lymphocytes % (Manual) 16 % (20-45) L Monocytes % (Manual) 4 % (1-10) Eosinophils % (Manual) 0 % (0-3) Basophils % (Manual) 1 % (0-2) Band Neutrophils 0 % (0-8) Platelet Estimate Decreased L Platelet Morphology Normal Hypochromasia 3+ Anisocytosis 3+ Target Cells 1+ Sodium Level 140 MMOL/L (136-145) Potassium Level 3.7 MMOL/L (3.5-5.1) Chloride Level 104 MMOL/L (98-107) Carbon Dioxide Level 16 MMOL/L (21-32) L Anion Gap 21 mmol/L (5-15) H Blood Urea Nitrogen 14 mg/dL (7-18) Creatinine 1.6 MG/DL (0.55-1.30) H Estimat Glomerular Filtration Rate 45.1 mL/min (>60) Glucose Level 134 MG/DL (74-106) H Calcium Level 7.0 MG/DL (8.5-10.1) L Total Bilirubin 2.7 MG/DL (0.2-1.0) H Direct Bilirubin 1.3 MG/DL (0.0-0.3) H Aspartate Amino Transf (AST/SGOT) 544 U/L (15-37) H Alanine Aminotransferase (ALT/SGPT) 95 U/L (12-78) H Alkaline Phosphatase 216 U/L (46-116) H Total Protein 5.1 G/DL (6.4-8.2) L Albumin 1.6 G/DL (3.4-5.0) L Globulin 3.5 g/dL Albumin/Globulin Ratio 0.5 (1.0-2.7) L Height (Feet): 5 Height (Inches): 6.00 Weight (Pounds): 160 Medications Current Medications Medications (Trade) Dose Ordered Sig/Faustino Route PRN Reason Start Time Stop Time Status Last Admin Dose Admin Acetaminophen (Tylenol) 650 mg Q3H PRN RECTAL For Pain 02/01/18 16:00 03/03/18 15:59 Dopamine HCl/ Dextrose 250 ml @ 0 mls/hr Q24H IV 02/01/18 16:21 03/03/18 16:20 Epinephrine 1 mg/ Dextrose 250 ml @ 0 mls/hr Q24H IV 02/01/18 18:00 03/03/18 17:59 Folic Acid 1 mg/ Magnesium Sulfate 2000 mg/ Multivitamins 10 ml/Sodium Chloride 1,014.2 ml @ 125 mls/ hr Q24H IV 02/01/18 18:00 03/03/18 17:59 Lorazepam (Ativan 2mg/ml 1ml) 1 mg Q6H PRN IV For Anxiety 02/01/18 16:00 02/08/18 15:59 Lorazepam (Ativan 2mg/ml 1ml) 2 mg Q5M PRN IV Seizures 02/01/18 16:13 03/03/18 23:59 Norepinephrine Bitartrate 16 mg/ Dextrose 566 ml @ 0 mls/hr Q24H IV 02/02/18 17:00 03/03/18 16:59 Octreotide Acetate 500 mcg/ Sodium Chloride 500 ml @ 50 mls/hr Q10H IV 02/01/18 15:30 03/03/18 15:29 Pantoprazole 80 mg/Sodium Chloride 250 ml @ 25 mls/hr Q10H ONCE IV 02/01/18 15:30 02/02/18 01:29 Piperacillin Sod/ Tazobactam Sod 3.375 gm/Dextrose 110 ml @ 27.5 mls/hr EVERY 8 HOURS IVPB 02/01/18 22:00 02/06/18 21:59 Sodium Bicarbonate 50 ml/ Sodium Chloride 1,050 ml @ 50 mls/hr Q21H IV 02/01/18 18:00 03/03/18 17:59 Sodium Chloride 500 ml @ 999 mls/hr Q31M PRN IV SBP greater than 60 02/01/18 15:45 03/03/18 15:44 Thiamine HCl 100 mg/Dextrose 56 ml @ 112 mls/hr Q24H IVPB 02/01/18 17:00 03/03/18 16:59 Vancomycin HCl (Vanco rx to dose) 1 ea DAILY PRN MISC Per rx protocol 02/01/18 17:45 03/03/18 17:44 Vancomycin HCl/ Dextrose 250 ml @ 166.667 mls/hr ONCE IVPB 02/01/18 18:00 02/01/18 20:00 Assessment/Plan Problem List: (1) Aspiration pneumonia Assessment & Plan: suspect due to UGI BLD, continue zosyn and vancomycin pending cultures, aspiration precaution ICD Codes: J69.0 - Pneumonitis due to inhalation of food and vomit SNOMED: 440017762 (2) Hepatic encephalopathy Assessment & Plan: due to alcoholic liver disease, monitor ammonia ICD Codes: K72.90 - Hepatic failure, unspecified without coma SNOMED: 22707503 (3) Alcoholic pancreatitis Assessment & Plan: continue supportive care with hydration and close monitor of lipase level ICD Codes: K85.20 - Alcohol induced acute pancreatitis without necrosis or infection SNOMED: 547310347 (4) UGIB (upper gastrointestinal bleed) Assessment & Plan: suspect esophageal varices due to alcoholic liver cirrhosis , keep npo, monitor H/H, transfused as needed, GI is following ICD Codes: K92.2 - Gastrointestinal hemorrhage, unspecified SNOMED: 15163944 Status: not improved, deteriorating Anthony Alejandre M.D. Feb 01, 2018 18:26
--- NOTE | 2018-02-01 18:54 | Emergency Room Report ---
History of Present Illness General Chief Complaint: Altered Level of Consciousness Source: Caregiver Present Illness HPI I was called to a CODE SUSAN. Patient apparently was recently admitted to the intensive care unit. Patient had return for hypothermic arrest. Patient apparently was also acidotic. When I arrived CPR was in progress. No further history is available at the time. Patient was noted to be critical. Allergies: Coded Allergies: No Known Allergies (Unverified , 02/01/18) Patient History Past Medical History: unable to obtain Past Surgical History: unable to obtain Pertinent Family History: unable to obtain Social History: Reports: alcohol use Nursing Documentation-[facility] Past Medical History: No Stated History Review of Systems All Other Systems: limited - CODE BLUE Physical Exam Pulseless. Apneic. Cold blue in progress. Compressions in progress. General Appearance: Chronically Ill Head: atraumatic ENT: moist mucus membranes Neck: supple Respiratory: other - Apneic Cardiovascular #1: other - Pulseless Gastrointestinal: soft Musculoskeletal: normal inspection Neurologic: other - Unable to obtain Psychiatric: other - Unable to obt Skin: no rash Procedures Critical Care Time Critical Care Time Patient had a critical medical condition which untreated could potentially result in life or limb threatening injury. Total critical care time excluding procedures was approximately 35 minutes. Medical Decision Making Diagnostic Impression: Primary Impression: Cardiac arrest Additional Impression: ER Course I was called to kandace blue. I arrived to CPR in progress. Patient appeared be critical. CPR was in progress. Patient was resuscitated using ACLS protocol. Patient was already intubated. Patient had a central line in the right groin as well. Patient was initially resuscitated. Patient did have a regained pulse. Patient was already on dopamine and Levophed. I wanted to order a epinephrine drip as well. After the first resuscitation was performed patient did have regained a pulse code blue was discontinued. Then I signed the case out back to Dr. Pollock. Unfortunately shortly afterwards patient again decompensated. ACLS protocol was again reinitiated. Patient unfortunately did not improve and did not regain a pulse. Patient was in asystole. Therefore the resuscitation was discontinued. This was the third time the patient had experienced a cardiac arrest within 24 hours. I felt that further intervention was likely futile. Therefore patient was pronounced at 5:40 PM. Last Vital Signs Date Time Temp Pulse Resp B/P (MAP) Pulse Ox O2 Delivery O2 Flow Rate FiO2 02/01/18 15:49 53/31 02/01/18 14:50 84.0 84 20 96 Mechanical Ventilator 3.0 100 Disposition: Condition: Referrals: NOT CHOSEN IPA/,REFERRING (PCP) Mani Leal MD Feb 01, 2018 18:54
[2018-02-01] MEDS ORDERED: Piperacillin/Tazobactam 3.375 GM in D5W 110 ML IVPB SCH (22:00)
--- NOTE | 2018-02-01 23:00 | Consultation ---
DATE OF CONSULTATION: 02/01/2018 PULMONARY AND CRITICAL CARE CONSULTATION CONSULTING PHYSICIAN: Fer Daigle M.D. REFERRING PHYSICIAN: Alix Pollock M.D. REASON FOR CONSULTATION: Shock and critical care management. HISTORY OF PRESENT ILLNESS: The patient is a very unfortunate 57-year-old male with a history of alcoholism, who was brought in by the EMS with altered mental status. He was hypothermic on arrival with a temperature of 80 per ER report. He is able to open his eyes, but was barely responsive otherwise. The patient was withdrawing appropriately when he first arrived to the ER. He had marked acidosis. EKG showed Monique wave. The patient initially given hypotension, had 2 large IVs placed. He was given a liter of saline and 2 more liters of warm saline. Defibrillator pads were placed. Right femoral central line was placed as well. The patient did code with asystole status post ROSC after 2 rounds of compressions. At the time that I came to the ER, the patient had just been intubated. He was on 20 mcg of norepinephrine and dopamine via the right femoral CVC with a MAP in the 40s. He was also on ventilator AC mode rate of 14, tidal volume of 500, PEEP of 5, FiO2 of 100. His ABG at that time was 7.0/4/77/14/82. He had evidence of pancytopenia with a decrease in all lines including a platelet count of 20,000, abnormal creatinine, abnormal liver function, and severe lactic acidosis. The patient had active bleeding in his NG tube at the time of my evaluation. He was pending 3 units of PRBC. Hemoglobin on arrival was 9.3, decreased to 7.4 with active ongoing bleeding. Chest x-ray prior to intubation did not show any acute abnormality. CT scan of the head showed chronic and age-related changes, but no bleed. There was an incidental scalp lesion noted and worsening bilateral infiltrates were noted on the follow up chest x-ray post intubation. PAST MEDICAL HISTORY: Alcoholism, otherwise unknown. PAST SURGICAL HISTORY: Unknown. ALLERGIES: No known drug allergies. MEDICATIONS: Prior to admission medications, unknown. SOCIAL HISTORY: Unobtainable. FAMILY HISTORY: Unobtainable. REVIEW OF SYSTEMS: Unobtainable. PHYSICAL EXAMINATION: VITAL SIGNS: Temperature 84, pulse 84, and blood pressure 83/24. Intubated. The patient on a ventilator. HEENT: Normocephalic and atraumatic. He has an NG-tube and an ET tube. There is bloody output through both. NECK: Supple without lymphadenopathy or JVD. CHEST: Coarse bilateral breath sounds. HEART: Tachycardic, but regular. ABDOMEN: Soft, nontender, and nondistended. EXTREMITIES: No cyanosis, clubbing, or edema. He does have petechiae noted. NEUROLOGIC: The patient is intubated, sedated, and unarousable. ANCILLARY DATA: White count 4.2; hemoglobin 9.3, repeat 74; hematocrit 31, repeat 24; platelet count 31,000, repeat 20,000; and 76% polys. ABG on admission 7.1/30/298/90/9.8, repeat 7.0/54/77/14, repeat 6.9/56/55/13/60. Sodium 140, potassium 3.7, chloride 107, bicarbonate 16, gap 21, BUN 14, creatinine 1.6, and glucose 134. Lactic acid 12.2/12.7/13.8, calcium 7, total bilirubin 2.7, direct 1.3, AST 544, ALT 95, alkaline phosphatase 216, total protein 5.1, albumin 1.6, and globulin 3.5. Lipase greater than 2000. Salicylates negative. Acetaminophen negative. Urine toxicology negative. Alcohol 325. IMAGING: Chest x-ray initially within normal limits. Follow-up chest x-ray post intubation shows the ET tube and scattered bilateral new infiltrates. CT of the head, limited exam with chronic and age-related changes. Negative for acute bleed. Subcutaneous scalp lesion is noted. EKG from the ER, was read as , but shows Monique waves in II, III and AVF. No true ST changes with a junctional rhythm at a rate of 57. ASSESSMENT: The patient is a very unfortunate 57-year-old male with a history of alcohol abuse, presenting with altered mental status, hypothermic shock, status post asystole Code Blue/ROSC/active gastrointestinal bleed, likely variceal bleed with multisystem organ failure, disseminated intravascular coagulation , and pancytopenia. He has severe lactic acidosis and is critically ill. PROBLEM LIST: 1. Severe lactic acidosis. 2. Anion gap metabolic acidosis. 3. Hypothermic shock. 4. Asystole/Code Blue, status post ROSC. 5. Possible pneumonia. 6. Pancytopenia with profound thrombocytopenia. 7. DIC. 8. Multisystem organ failure. 9. Abnormal creatinine, likely KHURRAM. 10. Abnormal LFTs, likely shock liver. 11. Alcoholic pancreatitis. 12. Alcoholic hepatitis. 13. Acute alcohol intoxication. 14. GI bleed likely variceal bleed. 15. Extremely poor prognosis. TREATMENT PLAN: 1. Continue ventilatory support. 2. Based on most recent ABG, we will increase rate to 28, PEEP to 10, volume to 600. 3. Titrate down FiO2 to keep saturations greater than 92%. 4. Continue antibiotics (Zosyn) per ID. 5. Continue vasoactive support, titrate pressors (norepinephrine and dopamine) to keep MAP greater than 60 mmHg. 6. Start vasopressin. 7. Start octreotide drip and Protonix drip. 8. Transfuse PRBC. 9. Transfuse FFP. 10. Follow up DIC laboratories. 11. Trend EKG and troponin. 12. Case discussed with Cardiology as well, who feels that findings represent Monique waves. 13. Continue critical care management in the ER. The patient is unstable for transport to the actual ICU. 14. The patient is a Full Code. 15. Prognosis is extremely poor. 16. We will attempt to discuss with family or next of kin. 17. Greater than 100 minutes of critical care time spent in the care of this patient. Fer Daigle M.D. DR: МАРИЯ JOB#: [id number] CC:
[2018-02-02] MEDS ORDERED: Pantoprazole Inj IVP SCH (09:00)
--- NOTE | 2018-02-02 09:03 | History & Physical ---
History and Physical History & Physicial patient , prior my visit Alix Pollock MD Feb 02, 2018 09:03
--- NOTE | 2018-02-02 10:32 | Discharge Summary ---
Discharge Summary Discharge Summary _ DATE OF ADMISSION: 02/01/2018 DATE OF DISCHARGE: 02/01/2018 CONSULTANTS: Dr. Fer Jaimes [facility] COURSE: Patient is a 57-year-old male who was taken by EMS for altered level of consciousness. He was found on the streets. Apparently blood sugar was 151 in the field, patient was somnolent. There were no signs of trauma and was unable to give any history. On arrival to ED, he was found to be hypothermic. He was hypotensive and was given warm IV hydration. He was given warm blanket body warmers. Blood work showed lactic acid 12.2, lipase was elevated to 2000, LFTs were elevated. Creatinine was 1.7, BUN 15. Initial hemoglobin 9.3, hematocrit 31, platelet count was 31. He had severe lactic acidosis. Urine toxicology was negative. Salicylates negative. Alcohol level 325. CT scan of the head showed chronic and age-related changes but no bleed. While at ED, patient went into asystole. He was orally intubated and a central line was inserted to the right femoral vein. He was eventually started on IV pressors. He was started empirically on vancomycin and Zosyn. He was admitted to ICU in critical condition. He was noted to have active bleeding coming out from the NG tube. Repeat chest x-ray showed worsening bilateral infiltrates. Patient again went into asystole. Patient coded. Resuscitative efforts failed and patient . FINAL DIAGNOSES: Cardiopulmonary arrest Hypothermic shock Possible pneumonia Pancytopenia with profound thrombocytopenia DIC Multisystem organ failure Abnormal creatinine, likely acute kidney injury Shock liver Alcoholic pancreatitis Alcoholic hepatitis Acute alcoholic intoxication GI bleed likely variceal bleed Severe lactic acidosis Anion gap metabolic acidosis DISPOSITION: Patient . I have been assigned to dictate discharge summary on this account, and I was not involved in the patient's management. Beryl Brandon NP Feb 02, 2018 10:32
[2018-02-02] MEDS ORDERED: Norepinephrine Bitartrate 16 MG in D5W 500ml 550 ML IV SCH (17:00)
== END 2018-02-01 17:14 | disposition expired | DRG 922 ==
LOC: EDBD 10:34 → EMR 10:45 → ICU 10:54 → EDBEDREQ 14:27
PROC: 0BH17EZ Insertion of Endotracheal Airway into Trachea, Via Natural or Artificial Opening (ICD-10-PCS; principal; 2018-02-01)
PROC: 5A12012 Performance of Cardiac Output, Single, Manual (ICD-10-PCS; principal; 2018-02-01)
PROC: 5A1935Z Respiratory Ventilation, Less than 24 Consecutive Hours (ICD-10-PCS; principal; 2018-02-01)
PROC: 06HM33Z Insertion of Infusion Device into Right Femoral Vein, Percutaneous Approach (ICD-10-PCS; principal; 2018-02-01)
DX: T68.XXXA Hypothermia, initial encounter (principal); D65 Disseminated intravascular coagulation [defibrination syndrome]; K72.00 Acute and subacute hepatic failure without coma; K85.20 Alcohol induced acute pancreatitis without necrosis or infection; I85.11 Secondary esophageal varices with bleeding; J69.0 Pneumonitis due to inhalation of food and vomit; D61.818 Other pancytopenia; N17.9 Acute kidney failure, unspecified; K92.2 Gastrointestinal hemorrhage, unspecified; E87.2 Acidosis; X31.XXXA Exposure to excessive natural cold, initial encounter; R57.8 Other shock; K70.10 Alcoholic hepatitis without ascites; F10.129 Alcohol abuse with intoxication, unspecified; K70.30 Alcoholic cirrhosis of liver without ascites; K72.90 Hepatic failure, unspecified without coma
CPT/HCPCS: 31500; 36415; 36600; 70450; 71045; 80048; 80053; 80076; 80307; 80329; 82248; 82803; 83605; 83690; 85007; 85025; 85384; 86850; 86900; 86901; 86920; 87040; 87081; 92950; 93005; 93306; 94002; 96361; 96365; 99291; J0171